=== PATIENT | male | born 1995 | race Caucasian/White ===

== ENCOUNTER 2016-12-02 19:24 | Emergency (ER) | payer OTHER ==
[2016-12-02 19:25] VITALS: BMI 19.2
[2016-12-02 20:06] VITALS: BP 118/65; PULSE 75; RESP 16; TEMP 97.7; O2SAT 100
--- NOTE | 2016-12-02 20:26 | ED PDOC ---
Arrival/HPI - General Historian: Patient - General Chief Complaint: Cough, Cold, Congestion Time Seen by Provider: 12/02/16 20:23 - History of Present Illness Narrative History of Present Illness (Text): 12/02/16 20:31 21-year-old male presents today with nasal congestion, sneezing and sore throat since this morning. Patient states he has a history of allergies in the past he was given a steroid injection for improvement. Patient is requesting medication for quick resolution of his symptoms. He denies chest pain or shortness of breath. Denies fevers or chills. Denies sick contacts. Denies abdominal pain. Denies nausea or vomiting. Denies dizziness or weakness. Patient states he woke up this morning with stuffy nose and difficulty breathing through his nose. Patient states he's been sneezing multiple times. He denies any difficulty eating or drinking. No other complaints (Krista Mckeon) Past Medical History - Provider Review Nursing Documentation Reviewed: Yes - Travel History Have you recently traveled outside [place] w/in the past 3 mons?: No - Past History Past History: No Previous - Tetanus Immunization Tetanus Immunization: Unknown - Past Medical History Past Medical History: No Previous - Psychiatric Hx Depression: No Hx Emotional Abuse: No Hx Physical Abuse: No Hx Substance Use: No - Past Surgical History Past Surgical History: No Previous - Anesthesia Hx Anesthesia: No - Suicidal Assessment Feels Threatened In Home Enviroment: No Family/Social History - Physician Review Nursing Documentation Reviewed: Yes Family/Social History: Unknown Family HX Smoking Status: Never Smoked Hx Alcohol Use: No Hx Substance Use: No Allergies/Home Meds Allergies/Adverse Reactions: Allergies No Known Allergies Allergy (Verified 04/07/16 00:38) Home Medications: Home Meds Medication Instructions Recorded Confirmed Ergocalciferol (Vitamin D2) 1 tab PO DAILY 04/07/16 04/07/16 [Vitamin D] Review of Systems - Review of Systems Constitutional: absent: Fatigue, Fevers ENT: Sore Throat, Sinus Congestion Respiratory: absent: SOB, Cough Cardiovascular: absent: Chest Pain, Palpitations Gastrointestinal: absent: Abdominal Pain, Nausea, Vomiting Genitourinary Male: absent: Dysuria Musculoskeletal: absent: Arthralgias Skin: absent: Rash Neurological: absent: Headache, Dizziness Psychiatric: absent: Anxiety, Depression Physical Exam Vital Signs Reviewed: Yes Temperature: Afebrile Blood Pressure: Normal Pulse: Regular Respiratory Rate: Normal Appearance: Positive for: Well-Appearing, Non-Toxic, Comfortable Pain Distress: None Mental Status: Positive for: Alert and Oriented X 3 - Systems Exam Head: Present: Atraumatic Conjunctiva: Present: Normal Ears: Present: Normal, NORMAL TM Mouth: Present: Moist Mucous Membranes, Normal Lips, Normal Tounge, Normal Teeth. No: Drooling, Trismus Pharnyx: Present: Normal. No: ERYTHEMA, EXUDATE, TONSILS ENLARGED, Peritonsilar Swelling, Uvular Deviation, Muffled/Hoarse Voice Neck: Present: Normal Range of Motion, Trachea Midline. No: MIDLINE TENDERNESS , Paraspinal Tenderness, Lymphadenopathy Respiratory/Chest: Present: Clear to Auscultation, Good Air Exchange. No: Respiratory Distress, Accessory Muscle Use Cardiovascular: Present: Regular Rate and Rhythm, Normal S1, S2. No: Murmurs Abdomen: No: Tenderness Upper Extremity: Present: Normal ROM Lower Extremity: Present: Normal ROM Neurological: Present: GCS=15 Skin: Present: Warm, Dry, Normal Color. No: Rashes Psychiatric: Present: Alert, Oriented x 3 Vital Signs Temp Pulse Resp BP Pulse Ox 12/02/16 19:59 97.7 F 75 16 118/65 100 Medical Decision Making ED Course and Treatment: 12/02/16 20:33 21yr old male with nasal congestion since this morning. vitals stable. no distress. pt requesting injection for quick relief of his seasonal allergies. advised patient that in the ER there is no medication for quick relief of allergies symptoms. pt will have to f/u with fly setter. Patient was advised to use Flonase and Claritin and follow up with the ENT specialist/fly setter within the next 2 days. Advised follow-up with the primary care physician. Advised may return if symptoms worsen or persist or if new concerning symptoms develop Patient verbalizes understanding of discharge instructions and need for immediate followup. all aspects of this case were discussed the attending of record. Impression: Nasal congestion Claritin one tablet daily Flonase 2 sprays each nostril once daily Follow-up with the fly setter within the next 2 days Follow-up with primary care physician within the next 2 days Return if symptoms worsen or persist or if new concerning symptoms develop ( Krista Mckeon) Disposition/Present on Arrival - Present on Arrival Any Indicators Present on Arrival: No History of DVT/PE: No History of Uncontrolled Diabetes: No Urinary Catheter: No History of Decub. Ulcer: No History Surgical Site Infection Following: None - Disposition Have Diagnosis and Disposition been Completed?: Yes Disposition Time: 20:23 Patient Plan: Discharge - Disposition Diagnosis: Nasal congestion Disposition: HOME/ ROUTINE Condition: GOOD Additional Instructions: Claritin one tablet daily Flonase 2 sprays each nostril once daily Follow-up with the fly setter within the next 2 days Follow-up with primary care physician within the next 2 days Return if symptoms worsen or persist or if new concerning symptoms develop Prescriptions: Fluticasone Nasal [Flonase] 2 spr NS DAILY #1 spr Loratadine [Claritin] 10 mg PO DAILY #30 tab Referrals: Carlos Samuels MD [Primary Care Provider] - Follow up with primary Kamar Grajeda DO [Staff Provider] - Follow up with primary Forms: [facility] ([place]), WORK NOTE
== END 2016-12-02 20:45 | disposition home or self-care (01) ==
LOC: ED 19:24
DX: R09.81 Nasal congestion (principal)